=== PATIENT | female | born 1965 | race Caucasian/White ===

== ENCOUNTER 2021-01-16 06:19 | Day surgery (SDC) | payer BC ==
[~2021-01-16] VITALS: Ht 170.2 cm; Wt 105.7 kg
--- NOTE | ~2021-01-16 | OP ---
PATIENT NAME: RAZ MARCELINO MEDICAL RECORD: [id number] :61 [facility] DATE: SURGEON: MARILEE JUÁREZ MD DATE OF OPERATION: 01/16/2021 PREOPERATIVE DIAGNOSIS: Right patellar fracture. POSTOPERATIVE DIAGNOSIS: Right patellar fracture. PROCEDURE PERFORMED: ORIF of right patella. INDICATIONS FOR THE PROCEDURE: Ms. Marcelino is a 55-year-old female who fell yesterday on the wet ground and injured her right knee. She slipped on the mud and fell landing on her knee. She required assistance getting up, was seen in the urgent care where x-rays showed a fractured patella. She was then evaluated in the orthopedic office and noted to have a transverse fracture of the patella with disruption of the extensor mechanism. Arrangements were made for her to come to the operating room today for operative repair. Risks, benefits and alternatives of surgery were discussed with the patient and consent was obtained. DESCRIPTION OF PROCEDURE: The patient was met in the holding area where her identity and confirmation of the procedure was performed. The right lower extremity was marked. She was taken to the operating room where she was placed supine on the operating table and anesthesia was administered. Tourniquet was applied to the right thigh and the right leg was prepped and draped in the usual sterile fashion. The patient received preoperative antibiotics and a timeout was performed before initiating the case. On initiation of the case, leg was exsanguinated and the tourniquet was raised. Total tourniquet time was 62 minutes. Anterior approach was utilized for exposure. A longitudinal incision was made over the anterior aspect of the knee, dissected down to the extensor mechanism. The overlying retinaculum was split longitudinally and our fracture was identified near the inferior border of the patella. Fracture hematoma was debrided. The fracture was irrigated thoroughly with saline. We then performed reduction with a [id number] clamp and the x-ray showed good alignment of our fracture. Two K-wires were then placed from the inferior pole to the superior pole, medial and lateral to our clamp. The medial piece was a separate fragment that was able to be captured with this K-wire. These K-wires were advanced to the cortex of the superior pole, measured and a 32-mm screw was placed laterally and the 26-mm screw was placed medially. These were [place] partially-threaded cannulated titanium screws. These were advanced down until we had a good bite and the screw head was flushed with the cortex. The K-wires were then removed. An 18-gauge wire was passed through the screws in a crisscross type fashion. With the wires passed, we were then able to sequentially tighten these wires to provide a tension band fixation. The wire ends were cut and bent over and final images were obtained that showed good alignment and fixation of our patellar fracture. Wound was again irrigated thoroughly with saline. The retinaculum and tissues over the anterior knee were then closed with #1 Vicryl suture. The subcutaneous tissue was infiltrated with 20 mL of 0.25% Marcaine. These tissues were closed with 2-0 Vicryl and the skin was closed with terrie and sutures were used distally due to the areas of abrasion. The sterile dressing was placed. The patient was turned back over to anesthesia where she was awakened, extubated, and taken to recovery room in stable condition. POSTOPERATIVE PLAN: The patient is going to return home with her family today. OPERATIVE REPORT [id number] WEAK,RAZ She needs to remain in knee immobilizer at all times with instructions for no knee range of motion. She can weightbear as tolerated in the knee immobilizer while using a walker or crutches. I am also going to give her a 1 week's supply of Keflex due to the skin damage at our distal incision. We will see her back in clinic in 2 weeks. COMPLICATIONS: None. ESTIMATED BLOOD LOSS: 25 mL. TRANSINT:[id number] Voice Confirmation ID: [id number] DOCUMENT ID: [id number] MARILEE JUÁREZ MD CC: [id number] DICTATION DATE: 01/16/21 1436 COMPRESS TRUCKER: 01/16/21 1623 [facility] [address] [id number]
[~2021-01-16 06:19] MED LIST: FEMARA2.5 MG PO; LIPITOR20 MG PO; ZIAC 5-6.25 MG1 TAB PO
[2021-01-16 06:56] LABS: ANION GAP 12.7 mmol/L (8-16); CALCIUM 8.9 mg/dL (8.5-10.1); CARBON DIOXIDE 26.2 mmol/L (21.0-32.0); CREATININE - SERUM 0.9 mg/dL (0.6-1.3); POTASSIUM - SERUM 3.9 mmol/L (3.5-5.1)
[2021-01-16] MEDS ORDERED: TYLENOL W/CODEI1 TAB PO (07:31)
[2021-01-16 07:43] VITALS: BP 130/82; Ht 170.2 cm; Wt 105.7 kg
[2021-01-16 07:46] LABS: BASOPHILS 0.5 % (0-2); EOSINOPHILS 2.9 % (0-7); HEMOGLOBIN 13.2 g/dL (12-16); IMMATURE GRANULOCYTES 0.3 % (0-5); LYMPHOCYTE ABS# 1.87 10x3/uL (1.18-3.74); LYMPHOCYTES 24.3 % (15-50); MCH 28.3 pg (26.0-34.0); MCV 85.8 fL (80.0-100.0); MEAN PLATELET VOLUME 9.3 fL (7.4-10.4); MONOCYTES 8.3 % (2-11); NEUTROPHIL ABS# 4.91 10x3/uL (1.56-6.13); NEUTROPHILS 63.7 % (40-80); PLATELET COUNT 197 10x3/uL (130-400); RBC 4.66 10x6/uL (4.00-5.40); RDW 12.8 % (11.5-14.5); WBC 7.7 10x3/uL (4.8-10.8)
--- NOTE | 2021-01-16 17:47 | NUR ---
IV D/C'D WITH CANNULA INTACT, PRESSURE HELD AND DRSG PLACED. DISCHARGE INSTRUCTIONS GIVEN AND PT VERBALIZED AN UNDERSTANDING. STATES PAIN IMPROVED 2/10 AFTER NORCO.
== END 2021-01-16 15:30 | disposition home or self-care (01) ==
LOC: D.OPS 06:19
PROVIDERS: Anesthesiology; ATTEND Orthopaedic Surgery
DX: S82.001A Unspecified fracture of right patella, initial encounter for closed fracture (principal); X58.XXXA Exposure to other specified factors, initial encounter